=== PATIENT | male | born 1935 | race Caucasian/White ===

== ENCOUNTER 2017-03-24 12:09 | Inpatient (IN) | payer OTHER ==
[~2017-03-24] VITALS: Ht 182.9 cm; Wt 78.1 kg
--- NOTE | 2017-03-24 12:23 | NUR ---
DR. MASON AT BEDSIDE FOR MSE
--- NOTE | 2017-03-24 12:46 | NUR ---
Patient was brought into the emergency department by daughter to be evaluated for the chief medical complaint of generalized weakness which has been ongoing for the past five days. Patient reports the symptom of intermittent diarrhea for one month. Patient denies any nausea or vomiting. Patient denies any shortness of breath or chest pain. Patient's daughter reports that normally the patient does not have any lower extremity pitting Adema but at this time he does have it. On room air of the patient oxygen saturation was 91 percent after being placed on 2 L of oxygen via nasal cannula route his oxygen saturation increased to 97 percent. Lung sounds are clear on the left side to auscultation and on the right side clear in the upper lobe but minimal crackles noted to the right base. Respirations are even and unlabored. Medical evaluation was completed by Dr. Morris. Patient hooked up to the full security developer. Patient is alert, awake, and oriented x4. 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
--- NOTE | 2017-03-24 12:55 | NUR ---
RT AT BEDSIDE FOR ABG'S AT THIS TIME
[2017-03-24] MEDS ORDERED: LOSARTAN POTASS25 M1 PO (13:00)
[2017-03-24] MEDS ORDERED: NOR5 PO (13:00)
[2017-03-24] MEDS ORDERED: PENTOXIFYLLINE400 MG PO (13:00)
[2017-03-24] MEDS ORDERED: TRAMADOL HCL50 MG PO (13:00)
[2017-03-24] MEDS ORDERED: CLOPIDOGREL75 M1 PO (13:01)
[2017-03-24] MEDS ORDERED: NEU300 (13:01)
[2017-03-24] MEDS ORDERED: LOMOTIL1 TAB PO (13:01)
[2017-03-24] MEDS ORDERED: NEU300 PO (13:01)
[2017-03-24] MEDS ORDERED: TEMAZEPAM30 MG PO (13:01)
[2017-03-24] MEDS ORDERED: FLUDROCORTISON0.1 MG PO (13:01)
--- NOTE | 2017-03-24 13:11 | NUR ---
PORTABLE RADIOLOGY AT BEDSIDE FOR CXR
[2017-03-24 13:12] LABS: PLATELET COUNT 263 x10^3mcL (130-400)
[2017-03-24 13:19] LABS: RED CELL DISTRIBUTION WIDTH 17.4 % (11.5-14.5)
[2017-03-24 13:20] LABS: CALCIUM 9.1 mg/dL (8.5-10.1); CARBON DIOXIDE 21.1 mmol/L (21-32); CHLORIDE SERUM 102 mmol/L (98-107); CREATININE SERUM 3.8 mg/dL (0.7-1.3); GLUCOSE SERUM 159 mg/dL (74-106); POTASSIUM SERUM 4.7 mmol/L (3.5-5.1); SODIUM SERUM 136 mmol/L (136-145)
[2017-03-24 13:32] LABS: ALKALINE PHOSPHATASE 71 U/L (46-116); ALT/SGPT 72 U/L (16-63); AST/SGOT 163 U/L (15-37); BILIRUBIN TOTAL 0.97 mg/dL (0.20-1.00); T4(THYROXINE) 5.2 ug/dL (4.7-13.3)
[2017-03-24 13:33] LABS: CK-MB 18.8 ng/mL (0-3.6)
[2017-03-24 13:38] LABS: ALBUMIN 3.3 g/dL (3.4-5.0); TOTAL PROTEIN, SERUM 8.4 g/dL (6.4-8.2)
--- NOTE | 2017-03-24 13:55 | NUR ---
PLAN OF CARE DISCUSSED BY DR. MASON WITH PT AND PTS FAMILY MEMBER AT BEDSIDE
[2017-03-24 14:14] LABS: ATYPICAL LYMPH 1 %; BAND NEUTROPHIL 23 % (0-10); SEGMENTED NEUTROPHILS 38 % (37-75)
[2017-03-24 14:15] LABS: METAMYELOCTE 1 % (0-2); MONOCYTE 29 % (0-7); MYELOCYTE 1 % (0-2)
[2017-03-24 14:17] LABS: PLATELET MORPHOLOGY GIANT PLATELET SEEN; rbc morphology (normal/abnorm) ABNORMAL (NORMAL)
--- NOTE | 2017-03-24 14:23 | NUR ---
PER DR. MASON OKAY TO MOVE PT TO FLOOR AND ORDERED UDS MAY BE COLLECTED UPSTAIRS
--- NOTE | 2017-03-24 14:29 | NUR ---
REPORT GIVEN TO FELICITA BARRETO TELE FLOOR TO ASSUME CARE OF PT POST TRANSPORT
--- NOTE | 2017-03-24 14:40 | NUR ---
RECEIVED PT FROM ED VIA [facility], CAME IN DUE TO SOB AND WEAKNESS X3-4 DAYS. AAOX4. ABLE TO FOLLOW COMMANDS. SOB NOTED ON EXERTION. LUNG SOUNDS CTA. DENIES CHEST PAIN/PRESSURE, AFIB W/ BBB ON THE MONITOR. DENIES ABDOMINAL DISCOMFORT. LAST BM WAS ON 03/23/17 AND WAS REGULAR PER PT. PT ATTEMPTS TO VOID BUT STATED THAT HE HAS DIFFICULTY URINATING AT THIS TIME. LAST VOID WAS IN AM. BLADDER IS SOFT. W/ DARK DISCOLORATION AND SCABS ON THE HEAD. W/ DRY SCABS ON BLE. PALE. PULSES ARE PALPABLE. SIDE RAILS UPX2. CALL LIGHT ON REACH. ENDORSED TO PRIMARY NURSE MARY LOU FOR CONTINUITY OF CARE.
[2017-03-24 15:05] VITALS: BP 122/50
[2017-03-24 15:07] VITALS: Ht 182.9 cm; Wt 78.1 kg
[2017-03-24 15:25] LABS: MAGNESIUM 2.2 mg/dL (1.8-2.4); PHOSPHOROUS 4.4 mg/dL (2.5-4.9)
[2017-03-24 15:32] LABS: CHOLESTEROL/HDL RATIO 2.6
--- NOTE | 2017-03-24 16:30 | NUR ---
HEPARIN DRIP STARTED 900 UNITS, BOLUS 4700 UNITS HEPARIN PER NURSING PROTOCOL. HEPARIN ORDERED BY DR. WORTHINGTON. VERIFIED WITH CHARGE NURSE ANN MARIE. PTT ORDERED FOR 03/25/[address] NEGATIVE FOR CRANIAL BLEEDING. IV FLUIDS FLOWING. NO COMPLAINT OF CHEST PAIN. NO SIGNS OF BLEEDINGS. PULSES +2 BUE/BLE. PT AMBULATORY. NO COMPLAINT OF DIZZINESS.
--- NOTE | 2017-03-24 19:19 | NUR ---
AOX4. AFIB WITH BBB ON TELE #16. FINE CRACKLES HEARD OVER RLL, OTHERWISE LUNGS CLEAR. ON NC @ 2L. PULSES PALPABLE. EDEMA NOTED TO BLE. BOWEL SOUNDS ACTIVE. PT C/O LOOSE BM. DRY SCABS NOTED TO BLE AND TOP OF HEAD. DENIES PAIN AT THIS TIME. DENIES SOB. NS @ 10 ML/HR TO RIGHT FA, NO REDNESS OR SWELLING. HEPARIN DRIP @ 900 UNITS/HR. NEXT PTT ORDERED FOR 0045. PT IS CALM AND COOPERATIVE. DAUGHTER AT BEDSIDE. BED IN LOW POSITION, CALL LIGHT IN REACH. INSTRUCTED TO CALL FOR ASSISTANCE.
--- NOTE | 2017-03-24 19:30 | NUR ---
PATIENT A/OX4. NO REPORT OF CHEST PAIN. NO SIGN OF ACUTE DISTRESS. IV FLUIDS FLOWING. HEPARIN DRIP RUNNING.PT LAYING IN BED. CALL LIGHT WITHIN REACH. BED IN LOW POSITION. ENDORSED TO ONCOMING SHIFT FELICITA OLIVEIRA.
[2017-03-24 22:00] VITALS: BP 110/63
[2017-03-25 01:06] LABS: microscopic required? YES; urine erythrocyte 1+ (NEGATIVE)
[2017-03-25 01:18] LABS: AMPHETAMINE QUAL UR NONE DETECTED (NEG <=1000)
--- NOTE | 2017-03-25 01:38 | NUR ---
0045 PTT RESULT 65.9, HEPARIN DRIP REDUCED TO 700 UNITS/HR. VERIFIED BY MARBIN MIMS. NEXT PTT ORDERED FOR 0535.
--- NOTE | 2017-03-25 02:24 | NUR ---
RESTING WITH EYES CLOSED. AWAKENS EASILY TO VERBAL STIMULI. BREATHING EVEN AND UNLABORED. NO ACUTE DISTRESS NOTED. WILL CONTINUE TO MONITOR.
[2017-03-25 04:09] VITALS: BP 133/66
--- NOTE | 2017-03-25 04:12 | NUR ---
PT HAD RUN OF VTA AT APPROXIMATELY 0321. VSS. DENIES CHEST PAIN. DR. JOY NOTIFIED. STAT EKG ORDERED.
[2017-03-25 06:00] VITALS: BP 138/80
[2017-03-25 06:21] LABS: PLATELET COUNT 259 x10^3mcL (130-400)
[2017-03-25 06:25] LABS: CARBON DIOXIDE 19.8 mmol/L (21-32); CHLORIDE SERUM 102 mmol/L (98-107); CREATININE SERUM 3.6 mg/dL (0.7-1.3); GLUCOSE SERUM 123 mg/dL (74-106); PHOSPHOROUS 4.7 mg/dL (2.5-4.9); POTASSIUM SERUM 4.5 mmol/L (3.5-5.1); SODIUM SERUM 137 mmol/L (136-145)
--- NOTE | 2017-03-25 06:30 | NUR ---
HEPARIN DRIP STILL INFUSING @ 700 UNITS/HR, 0535 PTT PENDING RESULTS. WILL ENDORSE CARE TO ONCOMING RN.
--- NOTE | 2017-03-25 07:03 | NUR ---
0535 PTT RESULT 39.5. BOLUSED 3200 UNITS HEPARIN AND INCREASED DRIP TO 900 UNITS/HR. VERIFIED BY MARBIN MIMS. NEXT PTT ORDERED FOR 1045
--- NOTE | 2017-03-25 07:25 | NUR ---
RECEIVED PT RESTING IN BED. NO ACUTE DISTRESS. APPEARS COMFORTABLE, NO PAIN NOTED. RESP EVEN AND UNLABORED ON 2L NC. HEPARIN DRIP INFUSING AT 900 UNITS/HR, NO ACTIVE BLEEDING NOTED. IVF INFUSING. BED IN LOW POSITION, CALL LIGHT WITHIN REACH. WILL CONTINUE TO MONITOR.
[2017-03-25 07:28] LABS: RED CELL DISTRIBUTION WIDTH 17.9 % (11.5-14.5)
[2017-03-25 09:18] VITALS: BP 138/62
--- NOTE | 2017-03-25 09:46 | NUR ---
DR. RODRIGUEZ NOTIFIED OF TROPONIN 12.278. PT DENIES CP OR PRESSURE AT THIS TIME. WILL CONTINUE TO MONITOR.
[2017-03-25 11:46] LABS: ATYPICAL LYMPH 2 %; BAND NEUTROPHIL 29 % (0-10); MONOCYTE 19 % (0-7); SEGMENTED NEUTROPHILS 28 % (37-75)
[2017-03-25 11:47] LABS: METAMYELOCTE 8 % (0-2); MYELOCYTE 2 % (0-2)
[2017-03-25 11:48] LABS: PLATELET MORPHOLOGY GIANT PLATELET SEEN; rbc morphology (normal/abnorm) ABNORMAL (NORMAL)
--- NOTE | 2017-03-25 12:04 | NUR ---
PTT 62.4. NO CHANGES PER HEPARIN PROTOCOL. HEPARIN DRIP INFUSING AT 900 UNITS/HR. NO ACTIVE BLEEDING NOTED. NEXT PTT ORDERED FOR 1600. WILL CONTINUE TO MONITOR.
--- NOTE | 2017-03-25 12:41 | NUR ---
PT RESTING IN BED. NO ACUTE DISTRESS. DENIES CP OR PRESSURE. RESP EVEN AND UNLABORED ON 2L NC. DR. VALERA AT BEDSIDE TALKING TO PT AND DAUGHTER. IVF INFUSING. BED IN LOW POSITION, CALL LIGHT WITHIN REACH. WILL CONTINUE TO MONITOR.
[2017-03-25 14:59] VITALS: BP 101/57
--- NOTE | 2017-03-25 17:20 | NUR ---
PTT 49.7. NO CHANGES PER HEPARIN PROTOCOL. 2 CONSECUTIVE THERAPEUTIC LEVELS, NEXT PTT ORDERED FOR 03/26/17 AT 0500. NO ACTIVE BLEEDING NOTED. WILL CONTINUE TO MONITOR.
[2017-03-25 17:46] VITALS: BP 122/56
--- NOTE | 2017-03-25 18:35 | NUR ---
PT RESTING IN BED. NO ACUTE DISTRESS. DENIES CP OR PRESSURE. AMBULATORY WITH MIN ASSIST TO BATHROOM. HEPARIN DRIP INFUSING AT 900 UNITS/HR. NEW IV STARTED ON RFA, FLUSHED AND PATENT. BED IN LOW POSITION, CALL LIGHT WITHIN REACH. WILL ENDORSE TO INCOMING SHIFT.
--- NOTE | 2017-03-25 19:23 | NUR ---
AOX4. AFIB WITH BBB ON TELE #16. FINE CRACKLES HEARD OVER RLL, OTHERWISE LUNGS CLEAR. ON NC @ 2L. PULSES PALPABLE. EDEMA NOTED TO BLE. BOWEL SOUNDS ACTIVE. DRY SCABS NOTED TO BLE AND TOP OF HEAD. DENIES C/P AT THIS TIME. DENIES SOB. NS @ 10 ML/HR TO RIGHT FA, NO REDNESS OR SWELLING. HEPARIN DRIP @ 900 UNITS/HR. NEXT PTT ORDERED FOR 0500. 2ND IV ACCESS TO RIGHT FA, NO REDNESS OR SWELLING. PT IS CALM AND COOPERATIVE. BED IN LOW POSITION, CALL LIGHT IN REACH. INSTRUCTED TO CALL FOR ASSISTANCE.
[2017-03-25 21:25] VITALS: BP 123/66
--- NOTE | 2017-03-26 02:16 | NUR ---
RESTING WITH EYES CLOSED. AWAKENS EASILY TO VERBAL STIMULI. NO ACUTE DISTRESS NOTED. WILL CONTINUE TO MONITOR.
[2017-03-26 05:36] VITALS: BP 101/43
[2017-03-26 06:18] LABS: CALCIUM 8.6 mg/dL (8.5-10.1); CARBON DIOXIDE 23.1 mmol/L (21-32); CHLORIDE SERUM 101 mmol/L (98-107); CREATININE SERUM 3.5 mg/dL (0.7-1.3); GLUCOSE SERUM 107 mg/dL (74-106); MAGNESIUM 1.6 mg/dL (1.8-2.4); PHOSPHOROUS 4.6 mg/dL (2.5-4.9); POTASSIUM SERUM 3.2 mmol/L (3.5-5.1); SODIUM SERUM 138 mmol/L (136-145)
--- NOTE | 2017-03-26 06:22 | NUR ---
MA.6, K: 3.[address] JOY NOTIFIED VIA [employer]. NO OTHER ACUTE CHANGES DURING SHIFT. WILL ENDORSE TO ONCOMING RN.
--- NOTE | 2017-03-26 06:23 | NUR ---
RESTING WITH EYES CLOSED. AWAKENS EASILY TO VERBAL STIMULI. NO ACUTE DISTRESS NOTED. WILL CONTINUE TO MONITOR.
[2017-03-26 06:27] LABS: PLATELET COUNT 284 x10^3mcL (130-400)
--- NOTE | 2017-03-26 06:35 | NUR ---
0500 PTT 53.3, THERAPEUTIC RANGE. HEPARIN DRIP CONTINUED AT 900 UNITS/HR, NO CHANGE. NEXT PTT ORDERED FOR 03/27 0500.
[2017-03-26 07:00] LABS: IRON 111 ug/dL (65-170)
[2017-03-26 07:02] LABS: TOTAL IRON BINDING CAPACITY 222 ug/dL (250-450)
--- NOTE | 2017-03-26 07:34 | NUR ---
RECEIVED PT IN NO ACUTE DISTRESS. RESP EVEN AND UNLABORED ON 2L NC. NO SOB NOTED. APPEARS, COMFORTABLE, NO PAIN NOTED. HEPARIN DRIP INFUSING AT 900 UNITS/HR, NO ACTIVE BLEEDING NOTED. SCABS TO HEAD, BUE/BLE, ANGELICA. BED IN LOW POSITION, CALL LIGHT WITHIN REACH. WILL CONTINUE TO MONITOR.
[2017-03-26 07:46] LABS: RED CELL DISTRIBUTION WIDTH 18.7 % (11.5-14.5)
[2017-03-26 09:29] VITALS: BP 103/50
[2017-03-26 11:20] LABS: BAND NEUTROPHIL 5 % (0-10); BASOPHIL 0 % (0-2); METAMYELOCTE 1 % (0-2); MONOCYTE 25 % (0-7); MYELOCYTE 1 % (0-2); SEGMENTED NEUTROPHILS 53 % (37-75)
[2017-03-26 11:21] LABS: PLATELET MORPHOLOGY LARGE PLATELET SEEN; rbc morphology (normal/abnorm) ABNORMAL (NORMAL)
--- NOTE | 2017-03-26 11:48 | NUR ---
PT RESTING IN BED. NO ACUTE DISTRESS. BREATHING EVEN AND UNLABORED ON 2L NC. NO SOB NOTED. HEPARIN DRIP INFUSING AT 900 UNITS/HR. HOB ELEVATED. BED IN LOW POSITION, CALL LIGHT WITHIN REACH. WILL CONTINUE TO MONITOR.
[2017-03-26 11:52] LABS: RED BLOOD CELLS 2.13 M/mm3 (4.52-5.90)
[2017-03-26 14:00] VITALS: BP 115/64
[2017-03-26 18:22] VITALS: BP 97/52
--- NOTE | 2017-03-26 19:06 | NUR ---
PT RESTING IN BED. NO ACUTE DISTRESS. RESP EVEN AND UNLABORED. AMBULATED TO BATHROOM WITHOUT ASSIST. HEPARIN DRIP INFUSING. BED IN LOW POSITION, CALL LIGHT WITHIN REACH. WILL ENDORSE TO INCOMING SHIFT.
--- NOTE | 2017-03-26 19:34 | NUR ---
AAO X 4. WAS RESTROOM, AMBULATED WITH STEADY GAIT BACK TO BED. BREATHING UNLABORED AT THIS TIME ON ROOM AIR. STATED HAVING EPISODES OF SHORTNESS OF BREATH ON EXERTION. IVF OF NS AT 10ML/HR. HEPARIN DRIP AT 900 UNITS/HR. DENIES HAVING CHEST PAIN OR CHEST DISCOMFORT.
[2017-03-26 20:37] VITALS: BP 115/57
[2017-03-26 21:40] VITALS: BP 111/50
--- NOTE | 2017-03-26 21:58 | NUR ---
DUE MEDICATIONS ADMINISTERED. AWAKE AND ALERT, STILL ON HEPARIN DRIP AT 900 UNITS/HR. NO SIGNS OR SYMPTOMS OF BLEEDING. CALL LIGHT WITHIN EASY REACH. HOB ELEVATED 30 DEG. UPPER SIDE RAILS KEPT RAISED, BED IN LOWEST POSITION. REMINDED TO USE CALL LIGHT TO CALL FOR ASSISTANCE. VERBALIZED UNDERSTANDING.
[2017-03-27 05:48] VITALS: BP 116/68
--- NOTE | 2017-03-27 06:07 | NUR ---
ambulated to restroom. denies having pain or shortness of breath during shift. ivf of ns at 10ml/hr. heparin drip at 900 units/hr awaiting ptt result for today.
--- NOTE | 2017-03-27 06:46 | NUR ---
ptt still pending
[2017-03-27 06:56] LABS: CALCIUM 8.9 mg/dL (8.5-10.1); CARBON DIOXIDE 24.1 mmol/L (21-32); CHLORIDE SERUM 103 mmol/L (98-107); CREATININE SERUM 3.7 mg/dL (0.7-1.3); GLUCOSE SERUM 115 mg/dL (74-106); MAGNESIUM 2.1 mg/dL (1.8-2.4); PHOSPHOROUS 5.5 mg/dL (2.5-4.9); POTASSIUM SERUM 3.6 mmol/L (3.5-5.1); SODIUM SERUM 139 mmol/L (136-145)
--- NOTE | 2017-03-27 07:17 | NUR ---
eyes closed, breathing even and unlabored on 2lpm of o2 via nc. call light within easy reach. awaiting ptt result. endorsed to nurse sobia
--- NOTE | 2017-03-27 07:25 | NUR ---
AAO X4.DENEIS ANY PAIN/DISCOMFORT.LUNGS CLEAR.ON AFIB ON THE MONITOR.HR=83.ON HEPARIN GTT AT 900 UNITS/HR.CALL LIGHT WITHIN REACH,INSTRUCTED TO CALL FOR ANY PAIN/DISCOMFORT.WILL CONTINUE TO MONITOR PT.
--- NOTE | 2017-03-27 08:13 | NUR ---
AND MEDICINE TEAM AT BEDSIDE.INFORMED PT ABOUT THE PLAN OF CARE.PT WILL GO HOME TODAY.
[2017-03-27 08:30] LABS: PLATELET COUNT 287 x10^3mcL (130-400)
[2017-03-27 08:33] LABS: RED CELL DISTRIBUTION WIDTH 18.3 % (11.5-14.5)
[2017-03-27] MEDS ORDERED: IMD60 PO (09:00)
[2017-03-27] MEDS ORDERED: APR10 PO (09:00)
[2017-03-27] MEDS ORDERED: ECO81 PO (09:02)
[2017-03-27] MEDS ORDERED: AUG500 PO (09:06)
[2017-03-27] MEDS ORDERED: LAC PO (09:06)
[2017-03-27] MEDS ORDERED: LASIX20 MG PO (09:07)
[2017-03-27] MEDS ORDERED: COR3 PO (09:08)
[2017-03-27] MEDS ORDERED: LIPI10 PO (09:09)
[2017-03-27 09:53] VITALS: BP 111/54
[2017-03-27 09:53] LABS: BAND NEUTROPHIL 10 % (0-10); BASOPHIL 0 % (0-2); MONOCYTE 30 % (0-7); MYELOCYTE 1 % (0-2); SEGMENTED NEUTROPHILS 41 % (37-75)
[2017-03-27 09:55] LABS: PLATELET MORPHOLOGY PLATELETS DECREASED; rbc morphology (normal/abnorm) ABNORMAL (NORMAL)
[2017-03-27 10:36] VITALS: BP 111/54
--- NOTE | 2017-03-27 12:53 | NUR ---
PT D/C TO HOME IV AND MONITOR D/C'D.GAVE PNA VACCINE PER PT'S AND DAUGHTER'S REQUEST.DISCHARGE INSTRUCTION GIVEN.PT VERBALIZES UNDERSTANDING.WENT DOWN VIA WHEELCHAIR ACCOMPANIED BY DAUGHTER AND RESEARCH ENVIRONMENTAL SCIENTIST.
== END 2017-03-27 12:56 | disposition home health service (06) | DRG 177 ==
LOC: ED 12:09 → DU 13:47
PROVIDERS: Emergency Medicine; Family Medicine; Internal Medicine Nephrology; ADMIT Family Medicine
DX: J69.0 Pneumonitis due to inhalation of food and vomit (principal); J96.00 Acute respiratory failure, unspecified whether with hypoxia or hypercapnia; I50.43 Acute on chronic combined systolic (congestive) and diastolic (congestive) heart failure; N17.0 Acute kidney failure with tubular necrosis; I21.4 Non-ST elevation (NSTEMI) myocardial infarction; I13.0 Hypertensive heart and chronic kidney disease with heart failure and stage 1 through stage 4 chronic kidney disease, or unspecified chronic kidney disease; N39.0 Urinary tract infection, site not specified; E44.1 Mild protein-calorie malnutrition; N18.3 Chronic kidney disease, stage 3 (moderate); R73.03 Prediabetes; I73.9 Peripheral vascular disease, unspecified; I48.2 Chronic atrial fibrillation; D53.9 Nutritional anemia, unspecified; E03.9 Hypothyroidism, unspecified; Z68.23 Body mass index [BMI] 23.0-23.9, adult; Z87.891 Personal history of nicotine dependence; Z53.29 Procedure and treatment not carried out because of patient's decision for other reasons
CPT/HCPCS: 36600; 76770; 83880; 90732; J1644; J1940; J2543; J2916; J3475; J7030; Q0092